=== PATIENT | male | born 1995 | race Caucasian/White ===

== ENCOUNTER → 2018-03-18 | Outpatient (CLI) | payer SELFPAY ==
--- NOTE | 2018-03-18 17:00 | Diagnostic Imaging Report ---
Exam: Ultrasound thyroid. Date: March 18, 2018. Comparison: None. Indication: 22-year-old male, sore throat. Findings: Two-dimensional grayscale and color Doppler images were obtained of the thyroid. Right lobe of the thyroid: The right lobe of the thyroid has uniform echotexture. There are no solid or cystic parenchymal distorting masses of the right thyroid. The right lobe of the thyroid measures 4.8 x 1.5 x 1.7 cm. Left lobe of the thyroid: The left lobe of the thyroid has uniform echotexture. There are no solid or cystic parenchymal distorting masses of the left thyroid. The left lobe of the thyroid measures 4.3 x 1.5 x 1.4 cm. Isthmus: The thyroid isthmus is unremarkable. Thyroid vascularity is within normal limits. Impression: Normal ultrasound of the thyroid. Dictated by: Dictated on workstation # [id number]
== END ==
LOC: RAD 16:07
PROVIDERS: ATTEND Internal Medicine
DX: J02.9 Acute pharyngitis, unspecified (principal)
CPT/HCPCS: 76536